=== PATIENT | male | born 1945 | race American Indian/Alaskan Native ===

== ENCOUNTER 2017-11-11 20:28 | Emergency (ER) | payer MEDICARE ==
[2017-11-11 20:29] VITALS: BMI 23.1
[2017-11-11] MEDS ORDERED: Sodium Chloride 0.9% 1,000 ML IV STA (20:42)
[2017-11-11 20:43] VITALS: TEMP 98.3
[2017-11-11 20:59] LABS: BASO % 0.9 % (0.0-2.0); EOS # 0.3 K/uL (0.0-0.7); EOS % 5.2 % (0.0-4.0); HEMATOCRIT 38.4 % (35.0-51.0); LYMPH # 1.9 K/uL (1.0-4.3); LYMPH % 36.6 % (20.0-40.0); MEAN CELL VOLUME 73.8 fL (80.0-94.0); MEAN CORPUSCULAR HEMOGLOBIN 23.9 pg (27.0-31.0); MEAN CORPUSCULAR HGB CONC 32.4 g/dL (33.0-37.0); MEAN PLATELET VOLUME 9.9 fL (7.2-11.7); MONO # 0.4 K/uL (0.0-0.8); MONO % 8.1 % (0.0-10.0); NRBC % 0.1 % (0.0-2.0); RED CELL DISTRIBUTION WIDTH 14.6 % (11.5-14.5); WHITE BLOOD COUNT 5.2 K/uL (4.8-10.8)
--- NOTE | 2017-11-11 21:00 | C.PDOC ---
History Of Present Illness 72 year old male with PMHx of CVA, DM , and HTN presents to the ED c/o nausea, vomit, and dizziness along with some abdominal discomfort that started this morning. Patient also reports a mild headache, patient reports being compliant with his medications. Patient states he has seen a number of ENT doctors for the same complaints of dizziness. Patient denies fever, chills, headache, blurry vision, back pain, dysuria, hematuria, LOC, weakness, numbness. Time Seen by Provider: 11/11/17 20:33 Chief Complaint (Nursing): Dizziness/Lightheaded History Per: Patient History/Exam Limitations: no limitations Onset/Duration Of Symptoms: Hrs Current Symptoms Are (Timing): Still Present Associated Symptoms Preceding Syncopal Episode: Lightheadedness Seizure Or Post-ictal Symptoms: None Fall Associated With With Symptoms: No Severity: None Recent travel outside of the [place]: No Additional History Per: Patient Past Medical History Reviewed: Historical Data, Nursing Documentation, Vital Signs Vital Signs: Last Vital Signs Temp 98.3 F 11/11/17 20:42 Pulse 78 11/11/17 20:42 Resp 18 11/11/17 20:42 BP 175/90 H 11/11/17 20:42 Pulse Ox 96 11/11/17 21:51 - Medical History PMH: Anemia (in the past), Bronchitis, CVA, HTN, Hypercholesterolemia Denies: Arthritis Surgical History: No Surg Hx - [facility] Procedures ENDOSC POLYPECTOMY OF LG INTEST (08/22/14) PLATELET TRANSFUSION (09/03/14) Family History: States: Unknown Family Hx - Social History Hx Tobacco Use: No Hx Alcohol Use: No Hx Substance Use: No - Immunization History Hx Tetanus Toxoid Vaccination: No Hx Influenza Vaccination: No Hx Pneumococcal Vaccination: No Review Of Systems Constitutional: Negative for: Fever, Chills Eyes: Negative for: Vision Change Cardiovascular: Negative for: Chest Pain, Palpitations Respiratory: Negative for: Cough, Shortness of Breath Gastrointestinal: Positive for: Nausea, Vomiting, Abdominal Pain. Negative for : Diarrhea Genitourinary: Negative for: Dysuria, Hematuria, Penile Discharge, Scrotal Pain Musculoskeletal: Negative for: Back Pain Skin: Negative for: Rash Neurological: Positive for: Headache, Dizziness. Negative for: Weakness, Numbness Physical Exam - Physical Exam Appears: Non-toxic, No Acute Distress Skin: Normal Color, Warm, Dry Head: Atraumatic, Normacephalic Eye(s): right: Normal Inspection, left: Other (nystagmus) Nose: No Discharge, No Deformity Oral Mucosa: Moist Neck: Normal ROM, Supple Chest: Symmetrical Cardiovascular: Rhythm Regular, No Murmur Respiratory: Normal Breath Sounds, No Rales, No Rhonchi, No Wheezing Gastrointestinal/Abdominal: Soft, No Tenderness Extremity: Normal ROM, No Pedal Edema, No Calf Tenderness, No Swelling Neurological/Psych: Oriented x3, Normal Speech, Normal Cognition Gait: Steady ED Course And Treatment - Laboratory Results Result Diagrams: 11/11/17 20:55 11/11/17 20:55 O2 Sat by Pulse Oximetry: 96 (On RA) Pulse Ox Interpretation: Normal Medical Decision Making Medical Decision Making: Impression : nausea, vomit, dizziness Plan: * Blood work * IV fluids * Zofran 4 mg IVP Patient's nausea resolved after medications, dizziness still presents worsened by movement of the head. Seems to be typical vertigo. Disposition - Disposition Disposition: HOME/ ROUTINE Disposition Time: 23:00 Condition: IMPROVED Forms: [facility] (Latvian) - Clinical Impression Clinical Impression: Dizziness - Scribe Statement The provider has reviewed the documentation as recorded by the Scribe Murali Elaine All medical record entries made by the Scribe were at my direction and personally dictated by me. I have reviewed the chart and agree that the record accurately reflects my personal performance of the history, physical exam, medical decision making, and the department course for this patient. I have also personally directed, reviewed, and agree with the discharge instructions and disposition.
[2017-11-11 21:11] LABS: ALKALINE PHOSPHATASE 45 U/L (38-126); ALT/SGPT 38 U/L (21-72); AST/SGOT 23 U/L (17-59); BILIRUBIN,TOTAL 0.4 mg/dL (0.2-1.3); BLOOD UREA NITROGEN 23 mg/dL (9-20); CALCIUM 8.3 mg/dl (8.6-10.4); CARBON DIOXIDE 36 mmol/L (22-30); CHLORIDE 101 mmol/L (98-107); GFR AFRICAN-AMERICAN > 60; GLUCOSE,RANDOM 100 mg/dL (75-110); POTASSIUM 3.5 mmol/L (3.6-5.2); SODIUM 141 mmol/L (132-148); TOTAL PROTEIN 8.5 g/dL (6.3-8.3)
[2017-11-11] MEDS ORDERED: Sodium Chloride 0.9% 1,000 ML ONE (21:27)
[2017-11-11 23:08] VITALS: BP 140/90; PULSE 80; RESP 14; O2SAT 99
== END 2017-11-11 23:08 | disposition home or self-care (01) ==
LOC: C.ER 20:28
DX: R42 Dizziness and giddiness (principal); E78.00 Pure hypercholesterolemia, unspecified; I10 Essential (primary) hypertension; E11.9 Type 2 diabetes mellitus without complications
CPT/HCPCS: 80053; 85025; 96361; 96372; 96374; 99285; J2405; J2550; J7040

== ENCOUNTER → 2019-03-05 | Outpatient (CLI) | payer MEDICARE | END | disposition home or self-care (01) | LOC: C.CTH 13:15 | DX: R91.1 Solitary pulmonary nodule (principal) ==